=== PATIENT | male | born 1990 | race Caucasian/White ===

== ENCOUNTER 2019-09-19 15:32 | Emergency (ER) | payer MEDICAID ==
[~2019-09-19] VITALS: Ht 175.3 cm; Wt 90.9 kg
[2019-09-19] MEDS ORDERED: normal saline 1000ML IV soln IVB ONE (15:35)
[2019-09-19 15:54] LABS: BASOPHILS # (AUTO) 0.1 X10'3 (0-0.2); BASOPHILS % (AUTO) 1.1 % (0-1); EOSINOPHILS # (AUTO) 0.3 X10'3 (0-0.9); EOSINOPHILS % (AUTO) 3.2 % (0-6); HEMATOCRIT 48.8 % (42.0-52.0); HEMOGLOBIN 16.5 g/dl (14.0-17.9); LYMPHOCYTES # (AUTO) 2.9 X10'3 (1.1-4.8); LYMPHOCYTES % (AUTO) 30.5 % (21-51); MEAN CORPUSCULAR HGB CONC 33.9 g/dL (33.0-36.5); MEAN CORPUSCULAR VOLUME 82.6 FL (78-98); MEAN PLATELET VOLUME 9.5 FL (7.4-10.4); MONOCYTES # (AUTO) 0.9 X10'3 (0-0.9); MONOCYTES % (AUTO) 8.9 % (2-12); NEUTROPHILS # (AUTO) 5.4 X10'3 (1.8-7.7); NEUTROPHILS % (AUTO) 56.3 % (42-75); PLATELET COUNT 267 X10'3 (140-440); RED BLOOD COUNT 5.91 X10'6 (4.70-6.10); RED CELL DISTRIBUTION WIDTH 15.1 % (11.5-14.5); WHITE BLOOD COUNT 9.6 X10'3 (4.5-11.0)
[2019-09-19 16:06] LABS: ALANINE AMINOTRANSFERASE 75 U/L (12-78); ALBUMIN 3.9 G/DL (3.4-5.0); ALBUMIN/GLOBULIN RATIO 1.1 (1.1-1.5); ALKALINE PHOSPHATASE 102 IU/L (46-116); ANION GAP 12 (8-16); ASPARTATE AMINO TRANSFERASE 39 U/L (10-37); BILIRUBIN,TOTAL 0.3 MG/DL (0.1-1.0); BLOOD UREA NITROGEN 12 MG/DL (7-18); BUN/CREATININE RATIO 8.8 (5.4-32.0); CHLORIDE 103 MMOL/L (99-107); CREATININE 1.36 MG/DL (0.60-1.10); GLUCOSE 155 MG/DL (70-104); SODIUM 138 MMOL/L (135-145); TOTAL CARBON DIOXIDE 23.3 MMOL/L (24-32); TOTAL PROTEIN 7.5 G/DL (6.4-8.2); eGFR 62 ML/MIN
[2019-09-19 16:08] LABS: ETHANOL < 0.010 GM/DL (0.0-0.010); POTASSIUM 3.7 MMOL/L (3.5-5.1)
[2019-09-19] MEDS ORDERED: naloxone 2mg/2ml inj IV ONE (19:05)
--- NOTE | 2019-09-19 19:06 | NUR ---
the patient had respiratory depression, rate 8 and spox 88%. Placed oxygen 2 l nc and repostitioned him from his left side to an upright seated position in [facility]. Family at BS. was informed.
--- NOTE | 2019-09-19 19:07 | NUR ---
Spoke with re pt's SPO2 in the 80s on RA. RR between 8-10/min. MD to place order for naloxone.
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
[2019-09-19] MEDS ORDERED: ondansetron/PF 4mg/2ml inj IV ONE (21:05)
[2019-09-19 21:23] LABS: URINE AMPHETAMINE SCREEN POSITIVE (Neg); URINE BARBITUATE SCREEN NEGATIVE (Neg); URINE BENZODIAZEPINES SCREEN NEGATIVE (Neg); URINE CANNABINOID SCREEN NEGATIVE (Neg); URINE COCAINE SCREEN NEGATIVE (Neg); URINE METHADONE SCREEN NEGATIVE (Neg); URINE OPIATE SCREEN POSITIVE (Neg); URINE PHENCYCLIDINE SCREEN NEGATIVE (Neg)
[2019-09-19 21:26] VITALS: BP 140/81
[2019-09-19] MEDS ORDERED: ONDA4TAB6 PO (21:40)
== END 2019-09-19 22:13 | disposition home or self-care (01) ==
LOC: ER 15:33
DX: S00.03XA Contusion of scalp, initial encounter (principal); T40.1X1A Poisoning by heroin, accidental (unintentional), initial encounter; R11.2 Nausea with vomiting, unspecified; F11.10 Opioid abuse, uncomplicated; F17.200 Nicotine dependence, unspecified, uncomplicated; X58.XXXA Exposure to other specified factors, initial encounter; Y93.89 Activity, other specified; Y92.89 Other specified places as the place of occurrence of the external cause; Y99.9 Unspecified external cause status
CPT/HCPCS: 36415; 70450; 71045; 72125; 80053; 80305; 80320; 82948; 85025; 93005; 96361; 96374; 96375; 99284; J2310; J2405; J7030

== ENCOUNTER 2019-09-23 13:28 | Emergency (ER) | payer MEDICAID ==
[~2019-09-23] VITALS: Ht 172.7 cm; Wt 95.8 kg
[~2019-09-23 13:28] MED LIST: ONDA4TAB6 PO
[2019-09-23] MEDS ORDERED: LORazepam 2 mg/ml vial IV ONE (13:40)
[2019-09-23] MEDS ORDERED: normal saline 1000ML IV soln IV ONE (13:40)
[2019-09-23 14:03] LABS: BASOPHILS # (AUTO) 0.1 X10'3 (0-0.2); BASOPHILS % (AUTO) 1.7 % (0-1); EOSINOPHILS # (AUTO) 0.2 X10'3 (0-0.9); EOSINOPHILS % (AUTO) 3.2 % (0-6); HEMATOCRIT 48.4 % (42.0-52.0); HEMOGLOBIN 16.6 g/dl (14.0-17.9); LYMPHOCYTES # (AUTO) 0.8 X10'3 (1.1-4.8); LYMPHOCYTES % (AUTO) 11.1 % (21-51); MEAN CORPUSCULAR HEMOGLOBIN 28.1 PG (27.0-31.0); MEAN CORPUSCULAR HGB CONC 34.2 g/dL (33.0-36.5); MEAN CORPUSCULAR VOLUME 82.1 FL (78-98); MEAN PLATELET VOLUME 9.9 FL (7.4-10.4); MONOCYTES % (AUTO) 13.5 % (2-12); NEUTROPHILS # (AUTO) 5.1 X10'3 (1.8-7.7); NEUTROPHILS % (AUTO) 70.5 % (42-75); PLATELET COUNT 233 X10'3 (140-440); RED CELL DISTRIBUTION WIDTH 15.2 % (11.5-14.5); WHITE BLOOD COUNT 7.2 X10'3 (4.5-11.0)
[2019-09-23 14:17] LABS: ALANINE AMINOTRANSFERASE 163 U/L (12-78); ALBUMIN 3.7 G/DL (3.4-5.0); ALBUMIN/GLOBULIN RATIO 0.9 (1.1-1.5); ALKALINE PHOSPHATASE 122 IU/L (46-116); ANION GAP 10 (8-16); ASPARTATE AMINO TRANSFERASE 66 U/L (10-37); BILIRUBIN,TOTAL 0.3 MG/DL (0.1-1.0); BLOOD UREA NITROGEN 12 MG/DL (7-18); BUN/CREATININE RATIO 10.6 (5.4-32.0); CALCIUM 8.8 MG/DL (8.5-10.1); CHLORIDE 101 MMOL/L (99-107); CREATININE 1.13 MG/DL (0.60-1.10); GLUCOSE 162 MG/DL (70-104); SODIUM 137 MMOL/L (135-145); TOTAL CARBON DIOXIDE 26.3 MMOL/L (24-32); TOTAL PROTEIN 7.6 G/DL (6.4-8.2); eGFR 77 ML/MIN
[2019-09-23 14:18] LABS: CREATINE KINASE 120 U/L (39-308)
[2019-09-23] MEDS ORDERED: ketorolac trometh. 30mg/ml inj. IV ONE (14:20)
[2019-09-23 15:59] VITALS: BP 121/76
== END 2019-09-23 16:03 | disposition home or self-care (01) ==
LOC: ER 13:28
DX: R07.89 Other chest pain (principal); T40.1X1D Poisoning by heroin, accidental (unintentional), subsequent encounter; F07.81 Postconcussional syndrome; F15.90 Other stimulant use, unspecified, uncomplicated; F11.90 Opioid use, unspecified, uncomplicated; Z79.899 Other long term (current) drug therapy
CPT/HCPCS: 36415; 71045; 80053; 82550; 83605; 84484; 85025; 87040; 93005; 96374; 96375; 99285; J1885; J2060; J7030

== ENCOUNTER 2025-07-01 17:06 | Emergency (ER) | payer MEDICAID ==
[~2025-07-01] VITALS: Ht 170.2 cm; Wt 104.6 kg
[2025-07-01 18:29] VITALS: BP 138/98; PULSE 110; O2SAT 99
--- NOTE | 2025-07-01 18:32 | Physician Documentation ---
History of Present Illness ~ Chief Complaint: Abrasion Stated Complaint: FOOT PAIN Time Seen by MD: 18:35 HPI 34-year-old male who presents with a right foot pain and swelling states that he is unable to walk due to the pain. It has a known methamphetamine user and has a history of staph infections. Denies any fevers but reports pain with ambulation Medication Reconciliation Allergies: Coded Allergies: No Known Allergies (Unverified , 07/01/25) Scheduled Ondansetron Hcl (Zofran), 1 TAB PO Q8H Sulfamethoxazole/Trimethoprim (Bactrim Ds Tablet), 1 TAB PO Q12H Past Medical History Past Medical History: No Pertinent History Past Surgical History: noncontributory Alcohol Use: None Drug Use: methamphetamine, heroin Lives In: Home Physical Exam Vital Signs: Temperature: 98.2, Source: Oral, Heart Rate: 110, Respiratory Rate: 17, BP: 138/98, Pulse Oximetry: 99, Weight: 104.600 Oxygen Flow Rate: 0 Progress Results/Orders Results/Orders Orders - JIMMIE RUBIO MD Normal Saline 1000ml (0.9% Sodium Chlori (07/01/25 18:50) Ketorolac Trometh 15mg/Ml Vial (Toradol (07/01/25 18:50) Vancomycin/Ns 1 Gm Add-[place] (Vancomyc (07/01/25 18:55) Completed Orders - JIMMIE RUBIO MD Vancomycin Inj (Vancomycin Inj) (07/01/25 18:37) Sulfamethox/Trimetho. Ds Tab (Septra Ds (07/01/25 18:40) Medications Received in ER Medications (Trade) Dose Ordered Sig/Karol Route PRN Reason Start Time Stop Time Status Last Admin Dose Admin (Aprra DS tab) 1 tab ONCE ONCE PO 07/01/25 18:40 07/01/25 18:50 DC 07/01/25 19:20 1 TAB Sodium Chloride 1,000 ml @ 1,000 mls/hr ONCE ONCE IV 07/01/25 18:50 07/01/25 19:49 07/01/25 19:20 1,000 MLS/HR Vital Signs 07/01/25 07/01/25 17:12 18:29 Temp 98.2 Pulse 104 110 Resp 16 17 B/P (MAP) 145/98 138/98 (111) Pulse Ox 98 99 O2 Flow Rate 0 Laboratory Tests Test 07/01/25 18:36 White Blood Count 10.7 Red Blood Count 5.21 Hemoglobin 14.9 Hematocrit 43.5 Mean Corpuscular Volume 83.5 Mean Corpuscular Hemoglobin 28.6 Mean Corpuscular Hemoglobin Concent 34.3 Red Cell Distribution Width 14.1 Platelet Count 187 Mean Platelet Volume 10.0 Neutrophils (%) (Auto) 75.1 H Lymphocytes (%) (Auto) 14.2 L Monocytes (%) (Auto) 7.2 Eosinophils (%) (Auto) 2.9 Basophils (%) (Auto) 0.6 Neutrophils # (Auto) 8.1 H Lymphocytes # (Auto) 1.5 Monocytes # (Auto) 0.8 Eosinophils # (Auto) 0.3 Basophils # (Auto) 0.1 CBC Comment Sodium Level 138 Potassium Level 4.0 Chloride Level 101 Carbon Dioxide Level 30.3 Anion Gap 7 L Blood Urea Nitrogen 16 Creatinine 1.04 Estimated GFR/1.73 m2 82 BUN/Creatinine Ratio 15.4 Glucose Level 128 H Lactic Acid Level 0.8 Calcium Level 8.9 Albumin 4.3 Chemistry Comments Medical Decision Making Additional information obtaine: N/A Findings Patient presents to the emergency room with foot pain that has per HPI. Differentials include but are not limited to cellulitis, septic arthritis, sepsis, DVT therefore emergent labs ordered. Labs reassuring for no sepsis. Physical exam consistent with cellulitis. Patient is able to move his ankle and he had not believe he is suffering from septic arthritis. Patient has received a dose of IV antibiotics and believe he will do well on outpatient basis. Differential Dx:Considerations: Include: Abscess, AIDS/HIV, Anthrax (cutaneous), Atopic dermatitis, Candidiasis, Contact dermatitis, Drug reaction, Erythema multiforme, Erysipelas, Gangrene, Herpes zoster, Herpes simplex, Hidradenitis suppurativa, Impetigo, Intertrigo, Lymes disease, Molluscum contagiosum, Osteomyelitis, Pediculosis, Pityriasis rosea, Psoriaisis, RMSF, Rosacea, Scabies, Scarlet fever, Tinea, Urticaria, Varicella, Viral exanthema, Other Departure Disposition: 01 HOME / SELF CARE / HOMELESS Impression: Primary Impression: Cellulitis Condition: Stable Discharge Instructions: Cellulitis, Adult Additional Instructions: Return for worsening of symptoms or fevers. Referrals: NO PRIMARY CARE PROVIDER (PCP) Prescriptions Sulfamethoxazole/Trimethoprim (Bactrim Ds Tablet) 800 Mg-160 Mg Tablet 1 TAB PO Q12H for 10 Days, #20 TAB Prov: JIMMIE RUBIO MD 07/01/25 Signature Scribe Signature: No scribe Attestation: The note accurately reflects work and decisions made by me.Jimmie Rubio MD 07/01/25 19:23 UYEN YEUNG NP Jul 01, 2025 18:32 JIMMIE RUBIO MD Jul 01, 2025 19:23
[2025-07-01] MEDS ORDERED: vancomycin inj 1,000 MG in normal saline 250ml IV soln 250 ML IV STA (18:37)
[2025-07-01 18:48] LABS: MEAN PLATELET VOLUME 10.0 FL (7.4-10.4); RED CELL DISTRIBUTION WIDTH 14.1 % (11.5-14.5)
[2025-07-01 18:58] LABS: CREATININE 1.04 MG/DL (0.60-1.10); TOTAL CARBON DIOXIDE 30.3 MMOL/L (24-32); eCRCL 94 ML/MIN; eGFR 82 ML/MIN
[2025-07-01] MEDS: sulfamethoxazole/trimethoprim DS (800/160mg) tablet PO ONE (19:20)
[2025-07-01] MEDS: normal saline 1000ml 1,000 ML IV ONE (19:20)
[2025-07-01] MEDS ORDERED: SULF1TAB49 PO (19:20)
[2025-07-01] MEDS: vancomycin/NS 1 GM ADD-VANTAGE 250 ML IV STA (19:25)
[2025-07-01 19:26] VITALS: RESP 16
[2025-07-01] MEDS: ketorolac trometh 15mg/ml vial 15 MG/ML ML IV ONE (19:26)
[2025-07-01 21:17] VITALS: TEMP 98.2
== END 2025-07-01 21:21 | disposition home or self-care (01) ==
LOC: ER 17:07
DX: L03.115 Cellulitis of right lower limb (principal)
CPT/HCPCS: 36415; 80048; 83605; 85025; 96365; 96375; 99284; J1885; J3373; J7030; A6258